=== PATIENT | female | born 1940 | race Caucasian/White ===

== ENCOUNTER → 2017-06-18 | Outpatient (CLI) | payer MEDICARE, OTHER ==
[~2017-06-18] MED LIST: ASPIRIN LO-DOSE81 MG PO; BUTALB-ACETAMI1 EAC1 PO; CHOLACOL PO; CRESTOR10 MG PO; DYAZIDE 37.5-21 EACH PO; GINGER ROOT550 MG PO; MECLIZINE HCL25 MG PO; VITAMIN B-121000 MCG PO; VITAMIN D35000 UNI1 PO; ZOFRAN ODT4 MG SL; [UNRECOGNIZED DRUG - CODE] PO; [UNRECOGNIZED DRUG - CODE] PO; [UNRECOGNIZED DRUG - OTHER] PO
== END | disposition disaster alternative care site (69) ==
LOC: GBCOE 07:54
DX: Z12.31 Encounter for screening mammogram for malignant neoplasm of breast (principal)
CPT/HCPCS: G0202